=== PATIENT | female | born 1995 | race African-American/Black ===

== ENCOUNTER 2016-12-16 16:36 | Emergency (ER) | payer OTHER ==
[2016-12-16] MEDS ORDERED: CYCLOBENZAPRINE HCL 10 MG TABLET PO ONE (17:33)
[2016-12-16] MEDS ORDERED: IBUPROFEN 800 MG TABLET PO ONE (17:33)
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
[2016-12-16 19:58] VITALS: BP 132/81
== END 2016-12-16 19:59 | disposition home or self-care (01) ==
LOC: ER 16:36
DX: S16.1XXA Strain of muscle, fascia and tendon at neck level, initial encounter (principal); M54.2 Cervicalgia; M54.89 Other dorsalgia; V43.52XA Car driver injured in collision with other type car in traffic accident, initial encounter; Z98.890 Other specified postprocedural states
CPT/HCPCS: 72125; 99284

== ENCOUNTER 2017-11-25 10:02 | Emergency (ER) | payer MEDICAID, OTHER ==
[2017-11-25 10:08] VITALS: BP 145/97
[2017-11-25 10:38] LABS: BACTERIA (WET MOUNT) 3+ BACTERIA SEEN; EPITHELIALS (WET MOUNT) 3+ EPITHELIALS SEEN; T.VAGINALIS (WET MOUNT) NO TRICHOMONAS SEEN; WBCS (WET MOUNT) 1+ WBCS SEEN; YEAST (WET MOUNT) NO YEAST SEEN
[2017-11-25] MEDS ORDERED: CEFTRIAXONE INJ 250 MG VIAL IM ONE (10:46)
[2017-11-25] MEDS ORDERED: AZITHROMYCIN 250 MG TABLET PO ONE (10:46)
[2017-11-25] MEDS ORDERED: LIDOCAINE 1% INJ-PF (10 MG/ML) 30 ML SDV INJ ONE (10:46)
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
[2017-11-25 10:56] LABS: APPEARANCE,URINE SLIGHTLY-CLOUDY; BILIRUBIN,URINE NEGATIVE (NEGATIVE); COLOR,URINE YELLOW; GLUCOSE, URINE NEGATIVE (NEGATIVE); KETONES,URINE NEGATIVE (NEGATIVE); LEUKOCYTE ESTERASE,URINE NEGATIVE (NEGATIVE); NITRITE,URINE NEGATIVE (NEGATIVE); PROTEIN,URINE NEGATIVE (NEGATIVE); URINE SPECIFIC GRAVITY 1.024; UROBILINOGEN,URINE NEGATIVE mg/dL (<2.0)
[2017-11-25 12:12] LABS: CHLAM PCR NOT DETECTED (NOT DETECT); GON PCR NOT DETECTED (NOT DETECT)
== END 2017-11-25 11:25 | disposition home or self-care (01) ==
LOC: ER 10:02
DX: Z20.2 Contact with and (suspected) exposure to infections with a predominantly sexual mode of transmission (principal); F12.10 Cannabis abuse, uncomplicated; Z87.891 Personal history of nicotine dependence
CPT/HCPCS: 99283; 96372; 87210; 81001; 87491; 87591; Q0144; J3490; J0696

== ENCOUNTER → 2018-09-12 | Outpatient (CLI) | payer MEDICAID ==
[2018-09-12 11:20] LABS: BACTERIA (WET MOUNT) 4+ BACTERIA SEEN; EPITHELIALS (WET MOUNT) 4+ EPITHELIALS SEEN; T.VAGINALIS (WET MOUNT) NO TRICHOMONAS SEEN; WBCS (WET MOUNT) RARE WBCS SEEN; YEAST (WET MOUNT) NO YEAST SEEN
[2018-09-12 12:51] LABS: CHLAM PCR NOT DETECTED (NOT DETECT)
== END ==
LOC: LAB 11:12
PROVIDERS: ATTEND Nurse Practitioner Acute Care
DX: N89.8 Other specified noninflammatory disorders of vagina (principal); Z72.51 High risk heterosexual behavior
CPT/HCPCS: 87210; 87491; 87591

== ENCOUNTER → 2018-09-26 | Outpatient (CLI) | payer MEDICAID ==
[2018-09-26 20:12] LABS: BACTERIA (WET MOUNT) 4+ BACTERIA SEEN; EPITHELIALS (WET MOUNT) 4+ EPITHELIALS SEEN; T.VAGINALIS (WET MOUNT) NO TRICHOMONAS SEEN; WBCS (WET MOUNT) 4+ WBCS SEEN; YEAST (WET MOUNT) BUDDING YEAST SEEN
[2018-09-26 21:35] LABS: CHLAM PCR NOT DETECTED (NOT DETECT)
== END ==
LOC: LAB 20:00
PROVIDERS: ATTEND Nurse Practitioner Acute Care
DX: N89.8 Other specified noninflammatory disorders of vagina (principal); R30.0 Dysuria
CPT/HCPCS: 87086; 87210; 87491; 87591